=== PATIENT | female | born 1950 | race Caucasian/White ===

== ENCOUNTER 2017-08-16 16:08 | Emergency (ER) | payer MEDICARE, OTHER, SELFPAY ==
[2017-08-16 16:11] VITALS: PULSE 67; RESP 18; TEMP 38.1; O2SAT 96; BMI 24.7
--- NOTE | 2017-08-16 16:32 | ED.SOB ---
HPI - SOB/Dyspnea General Chief Complaint: Shortness of Breath/Dyspnea Stated Complaint: thinks she has pneumonia Time Seen by Provider: 08/16/17 16:31 Source: patient Mode of arrival: ambulatory Limitations: no limitations History of Present Illness 67-year-old female here for evaluation of 2-3 days of a productive cough and wheezing. She also states that yesterday and today she had fevers and chills. No sinus congestion. States she has been diagnosed in the past with pneumonia and felt similar to this. Has not tried anything for it at home. Related Data Home Medications Medication Instructions Recorded Confirmed citalopram 10 mg PO DAILY #0 07/29/16 08/16/17 omeprazole 20 mg PO DAILY #0 07/29/16 08/16/17 aspirin 1 tab DAILY #0 07/15/17 08/16/17 carvedilol [Coreg] 1 tab PO BID #0 07/15/17 08/16/17 pravastatin 20 mg PO DAILY 08/16/17 08/16/17 Previous Rx's Medication Instructions Recorded azithromycin See Label Instructions .ROUTE 08/16/17 .COMPLEX #6 tab Allergies Allergy/AdvReac Type Severity Reaction Status Date / Time doxycycline [DOXYCYCLINE] Allergy Severe TONGUE Verified 08/16/17 16:15 SWELLING amoxicillin [From Augmentin] AdvReac Verified 08/16/17 16:15 clavulanic acid AdvReac Verified 08/16/17 16:15 [From Augmentin] Review of Systems Constitutional Reports body ache(s), Reports chills, Reports fatigue, Reports fever(s), Reports lethargy, Reports malaise, Denies night sweats and Denies weakness ENT Ears, Nose, Mouth, and Throat: Denies change in voice, Denies dizziness, Denies dry mouth, Denies hoarseness, Denies nasal congestion, Denies nasal discharge, Denies neck pain, Denies sinus pressure and Denies sore throat Cardiovascular Denies chest pain, Denies irregular heart rhythm, Denies lightheadedness, Denies palpitations, Denies dyspnea, Denies dyspnea on exertion and Denies orthopnea Respiratory Reports cough, Reports excessive phlegm production, Denies pain with cough, Denies dyspnea, Denies dyspnea on exertion and Denies wheezing Gastrointestinal Gastrointestinal: Denies abdominal pain, Denies change in bowel habits, Denies diarrhea, Denies nausea and Denies vomiting Musculoskeletal Denies neck pain Integumentary/Breasts Denies pruritus, Denies erythema, Denies rash and Denies wounds Neurologic Denies dizziness and Denies weakness Endocrine Reports fatigue and Denies palpitations Hematologic/Lymphatic Denies easy bruising Allergic/Immunologic Denies wheezing [facility] Social History Smoking Status: Former smoker Exam Const General: cooperative and well developed Nutritional Appearance: well nourished Orientation: alert, awake, oriented x3 and not confused HENMT Head: normocephalic and atraumatic Ears: external ears normal and TM's normal bilaterally Nose: external nose normal and No nasal discharge Face and sinus: sinuses nontender, face symmetric, no sinus tenderness and No dry mucous membranes Mouth: oral mucosae normal and moist mucous membranes Teeth and gingiva: dentition normal Throat: tonsils normal and uvula midline Resp Effort & Inspection: normal respiratory effort, able to speak in complete sentences, no respiratory distress and no use of accessory muscles Auscultation: clear to auscultation bilaterally, no rales, rhonchi right upper and right lower and no wheezes Skin General: no rashes or lesions noted, No jaundice and No petechiae Neuro General: alert, oriented x3, gait normal and no focal motor deficits Speech: speech normal Motor: strength 5/5 throughout Sensory Exam: no sensory deficits noted Course Orders Ordered: ED Orders 08/16/17 16:31 XR chest 2V Stat Last Vital Signs Temp 98.7 F 08/16/17 17:37 Pulse 96 H 08/16/17 17:37 Resp 20 08/16/17 17:37 BP 166/81 H 08/16/17 17:37 Pulse Ox 99 08/16/17 17:37 MDM - SOB/Dyspnea MDM Narrative Medical decision making narrative: Clinically patient has pneumonia. Has been febrile at home with a productive cough and has coarse right-sided breath sounds. No definitive consolidation seen on the chest x-ray. Patient does not have URI like symptoms. We did discuss the use of antibiotics and the risks and benefits. We also discussed the use of decongestants. I suggested that she take a decongestant along with the antibiotics for the next week. She was given return precautions. She expressed understanding and agreement with plan Imaging Data Chest x-ray: Radiologist's impression: PROCEDURE: XR CHEST 2V INDICATIONS: Fever cough malaise concern for pneumonia TECHNIQUE: 2 views of the chest were acquired. COMPARISON: [facility], , CHEST 2 VIEW, 07/29/2016, 12:23. FINDINGS: Surgical changes and devices: None. Lungs and pleura: No pleural effusions or pneumothorax. Lungs are clear. Mediastinum: Mediastinal contours are normal. Heart size is normal. Bones and chest wall: No suspicious bony abnormalities. Soft tissues appear unremarkable. IMPRESSION: No acute pulmonary process. Dictated by: Maryan Hart M.D. on 08/16/2017 at 16:52 Discharge Plan Departure Patient Disposition: Home, Self-Care Clinical Impression: Pneumonia Interventions: ED Discharge Assessment Last Done: 08/16/17 17:37 Instructions: Pneumonia-Adult Activity Restrictions/Additional Instructions: Take all of your medication as instructed. Call your primary care doctor for a follow-up. Recommend that you also take a decongestant such as Claritin/Tuyet/Zyrtec like we discussed. Return to the emergency department for any new or worsening symptoms Prescriptions: New azithromycin 250 mg tablet See Label Instructions .ROUTE .COMPLEX Qty: 6 RF: 0 No Action citalopram 10 MG tablet 10 mg PO DAILY Qty: 0 RF: 0 omeprazole 20 MG capsule,delayed release(DR/EC) 20 mg PO DAILY Qty: 0 RF: 0 aspirin 81 MG tablet,chewable 1 tab DAILY Qty: 0 RF: 0 carvedilol [Coreg] 3.125 MG tablet 1 tab PO BID Qty: 0 RF: 0 pravastatin 20 mg tablet 20 mg PO DAILY RF: 0
[2017-08-16 17:37] VITALS: BP 166/81; PULSE 96; RESP 20; TEMP 37.1; O2SAT 99
== END 2017-08-16 17:37 | disposition home or self-care (01) ==
PROVIDERS: Emergency Provider Emergency Medicine; PCP Nurse Practitioner Family
DX: J18.9 Pneumonia, unspecified organism (principal)
CPT/HCPCS: 71046; 99282; 99283

== ENCOUNTER → 2018-08-29 12:57 | Outpatient (CLI) | payer MEDICARE, OTHER, SELFPAY ==
[2018-08-29 14:52] LABS: Cholesterol 195 mg/dL (140-199); HDL Cholesterol 87 mg/dL (40-60); LDL Cholesterol Calculated 92 mg/dL (<100); Triglycerides 80 mg/dL (35-150)
== END ==
PROVIDERS: PCP Nurse Practitioner Family; Visit Provider Internal Medicine
DX: I25.10 Atherosclerotic heart disease of native coronary artery without angina pectoris (principal)
CPT/HCPCS: 36415; 80061

== ENCOUNTER 2019-04-26 20:06 | Emergency (ER) | payer MEDICARE, OTHER, SELFPAY ==
[2019-04-26 20:13] VITALS: BP 200/116; PULSE 99; RESP 14; TEMP 36.3; O2SAT 96; BMI 24.7
[2019-04-26 20:24] LABS: Add Manual Diff / Slide Review NO; Basophils Absolute Auto 100 /uL (0-100); Basophils Percent Auto 0.6 % (0-2); Eosinophils Absolute Auto 200 /uL (0-450); Eosinophils Percent Auto 1.8 % (2-4); Hemoglobin 16.7 g/dL (12.0-16.0); Lymphocytes Absolute Auto 1800 /uL (1100-4500); Lymphocytes Percent Auto 16.1 % (25-40); Mean Corpuscular HGB Conc 34.1 % (30-36); Mean Corpuscular Hemoglobin 30.2 PG (26-34); Mean Corpuscular Volume 88.4 fL (80-100); Monocytes Absolute Auto 400 /uL (0-900); Monocytes Percent Auto 4.1 % (3-14); Neutrophils Absolute Auto 8500 /uL (1500-7000); Neutrophils Percent Auto 77.4 % (50-75); Platelet Count 225 X10^3/uL (150-400); Red Blood Cell Count 5.55 X10^6/uL (4.0-5.2)
[2019-04-26 20:26] LABS: INR 1.1 (0.9-1.3); Prothrombin Time 12.2 SECONDS (10.1-12.7)
[2019-04-26 20:29] LABS: PTT Partial Thromboplastin Tim 34 SECONDS (26.4-36.2)
[2019-04-26 20:30] LABS: Alanine Aminotransferase 24 IU/L (<35); Albumin 4.7 g/dL (3.5-5.0); Albumin Globulin Ratio 1.2 (1.0-2.8); Alkaline Phosphatase 96 U/L (38-126); Aspartate Aminotransferase 38 IU/L (14-36); BUN Creatinine Ratio 28.6 (6-22); Blood Urea Nitrogen 20 mg/dL (7-17); Calcium 9.7 mg/dL (8.4-10.2); Carbon Dioxide 24 mmol/L (22-32); Chloride 100 mmol/L (98-107); Estimated Glomerular Filt Rate > 60.0 mL/min (>60); Globulin 3.8 g/dL (1.7-4.1); Glucose 132 mg/dL (80-110); HEMOLYSIS 68 (0-50); Lipase 103 U/L (23-300); Sodium 135 mmol/L (137-145); Total Protein 8.5 g/dL (6.3-8.2)
[2019-04-26 20:31] LABS: Potassium 4.6 mmol/L (3.4-5.1)
[2019-04-26 21:01] VITALS: BP 158/103; PULSE 80; O2SAT 96
[2019-04-26 21:26] VITALS: BP 199/96; PULSE 83; RESP 23; O2SAT 94
[2019-04-26 21:51] LABS: Creatine Kinase 162 U/L (30-135)
[2019-04-26 22:02] VITALS: BP 198/97; PULSE 83; O2SAT 96
[2019-04-26 22:04] LABS: Troponin I < 0.012 ng/mL (0.01-0.034)
[2019-04-26 22:07] LABS: Creatine Kinase MB 4.86 ng/mL (<2.37)
--- NOTE | 2019-04-26 22:19 | PC.NURSE ---
answered call light. Pt C/O increasing ABD pain. updated pt on wait for Dr. Updated DrEvelin On pt pain.
[2019-04-26 22:50] VITALS: BP 192/100; PULSE 88; O2SAT 94
--- NOTE | 2019-04-26 23:29 | ED.ABDPAIN ---
HPI - Abdominal Pain General Chief Complaint: Abdominal Pain Stated Complaint: Abdominal pain Time Seen by Provider: 04/26/19 22:31 Source: patient and EMS Mode of arrival: Wheelchair Limitations: no limitations History of Present Illness HPI narrative: 68-year-old woman with history of coronary disease reflux, hyperlipidemia presents with acute onset of nausea vomiting and diarrhea. She woke up this morning and felt somewhat nauseated and was having some mild stomach grumbling. Began having a couple of episodes of non bloody diarrhea. Proceeded to become more nauseated and then was having both emesis as well as diarrhea simultaneously. She is having severe abdominal cramps with this. No fevers, no cough, no chills, no chest pain. Related Data Home Medications Medication Instructions Recorded Confirmed citalopram 10 mg PO DAILY #0 07/29/16 08/16/17 omeprazole 20 mg PO DAILY #0 07/29/16 08/16/17 aspirin 1 tab DAILY #0 07/15/17 08/16/17 carvedilol [Coreg] 1 tab PO BID #0 07/15/17 08/16/17 pravastatin 20 mg PO DAILY 08/16/17 08/16/17 Previous Rx's Medication Instructions Recorded azithromycin See Rx Instructions .ROUTE 08/16/17 .COMPLEX #6 tab ondansetron HCl [Zofran] 4 mg PO Q8H PRN #10 tab 04/27/19 Allergies Allergy/AdvReac Type Severity Reaction Status Date / Time doxycycline [DOXYCYCLINE] Allergy Severe TONGUE Verified 08/16/17 16:15 SWELLING amoxicillin [From Augmentin] AdvReac Verified 08/16/17 16:15 clavulanic acid AdvReac Verified 08/16/17 16:15 [From Augmentin] Review of Systems Review of Systems Narrative: All systems reviewed and are unremarkable except as noted in HPI and below Patient History Medical History (Updated 04/27/19 @ 04:39 by Marcella Sullivan MD) Acid reflux (Acute) ASCVD (arteriosclerotic cardiovascular disease) (Acute) History of [place] (myocardial infarction) (Acute) Hyperlipidemia (Acute) Hypertension (Acute) Social History Smoking Status: Former smoker Smoking Status: Former smoker alcohol intake frequency: 0-2 drinks per day Alcohol type: wine Substance Use Type: does not use Exam Narrative Exam Narrative: General: Pale appearing in moderate distress due to crampy abdominal pain Able to give a complete and coherent history. Well-nourished well-developed HEENT: Moist mucous membranes, normal sclera with reactive pupils, Neck: No JVD, supple Respiratory: Lungs are clear to auscultation, no wheezing no rales no rhonchi. Full and symmetrical air movement Cardiac: Regular rate and rhythm no murmurs no bruits Abdomen: Significant right-sided tenderness without rebound or guarding good bowel tones, no flank pain Skin: Warm and dry, no rashes Neurologic: Grossly neurologically intact with no obvious asymmetries or abnormalities Extremities: No trauma, well perfused Psych: Cooperative, appropriate insight and affect Initial Vital Signs Initial Vital Signs: Vital Signs Temperature 97.3 F L 04/26/19 20:13 Pulse Rate 99 H 04/26/19 20:13 Respiratory Rate 14 04/26/19 20:13 Blood Pressure 200/116 H 04/26/19 20:13 Pulse Oximetry 96 04/26/19 20:13 Course Orders Ordered: ED Orders 04/26/19 20:12 EKG-12 Lead Stat 04/26/19 20:19 Complete Blood Count AUTO DIFF Stat Comprehensive Metabolic Panel Stat Lipase Stat Partial Thromboplastin Time Stat Prothrombin Time INR Stat Troponin & CK Cardiac Panel Stat 04/26/19 23:30 CT abdomen pelvis w con Stat 04/27/19 01:13 Urine Culture Stat Urine Microscopic Stat Discontinued Medications Hydromorphone HCl (Dilaudid) 0.5 mg IV NOW ONE Stop: 04/26/19 23:30 Last Admin: 04/26/19 23:42 Dose: 0.5 mg Documented by: MURIEL Sodium Chloride (Normal Saline 0.9%) 1,000 mls @ 1,000 mls/hr IV BOLUS ONE Stop: 04/27/19 00:28 Last Infusion: 04/27/19 01:18 Dose: 0 mls/hr Documented by: Admin: 04/26/19 23:42 Dose: 1,000 mls/hr Documented by: MURIEL Ondansetron HCl (Zofran) 4 mg IV NOW ONE Stop: 04/26/19 23:30 Last Admin: 04/26/19 23:42 Dose: 4 mg Documented by: MURIEL Ondansetron HCl (Zofran) 4 mg IV NOW ONE Stop: 04/27/19 04:12 Last Admin: 04/27/19 04:31 Dose: 4 mg Documented by: JAHAIRA Vital Signs Vital signs: Vital Signs - 8 hr 04/26/19 21:01 04/26/19 21:26 04/26/19 22:02 Pulse Rate 80 83 83 Respiratory Rate 23 Blood Pressure [Left Arm] 158/103 H 199/96 H 198/97 H Pulse Oximetry 96 94 96 04/26/19 22:50 04/26/19 23:30 04/27/19 00:18 Pulse Rate 88 101 H 83 Respiratory Rate 23 21 Blood Pressure [Left Arm] 192/100 H 197/111 H 139/76 Pulse Oximetry 94 94 95 04/27/19 00:50 04/27/19 02:46 Pulse Rate 83 88 Respiratory Rate 16 Blood Pressure [Left Arm] 162/86 H 143/89 H Pulse Oximetry 92 93 MDM - Abdominal Pain Medical Records Attestation: I reviewed the patient's medical records. Lab Data Attestation: I reviewed the patient's lab results. Result diagrams: 04/26/19 20:19 04/26/19 20:19 Labs: Lab Results 04/26/19 04/26/19 04/26/19 Range/Units 20:19 20:19 20:19 WBC 11.0 (4.5-11.0) X10^3/uL RBC 5.55 H (4.0-5.2) X10^6/uL Hgb 16.7 H (12.0-16.0) g/dL Hct 49.0 H (36-46) % MCV 88.4 (80-100) fL MCH 30.2 (26-34) PG MCHC 34.1 (30-36) % RDW 14.0 (11.6-14.8) % Plt Count 225 (150-400) X10^3/uL Neut % (Auto) 77.4 H (50-75) % Lymph % (Auto) 16.1 L (25-40) % [place] % (Auto) 4.1 (3-14) % Eos % (Auto) 1.8 L (2-4) % Baso % (Auto) 0.6 (0-2) % Neut # (Auto) 8500 H (9835-4574) /uL Lymph # (Auto) 1800 (7144-3353) /uL Independence # (Auto) 400 (0-900) /uL Eos # (Auto) 200 (0-450) /uL Baso # (Auto) 100 (0-100) /uL PT 12.2 (10.1-12.7) SECONDS INR 1.1 (0.9-1.3) APTT 34 (26.4-36.2) SECONDS Sodium 135 L (137-145) mmol/L Potassium 4.6 (3.4-5.1) mmol/L Chloride 100 (98-107) mmol/L Carbon Dioxide 24 (22-32) mmol/L BUN 20 H (7-17) mg/dL Creatinine 0.70 (0.52-1.04) mg/dL Estimated GFR > 60.0 (>60) mL/min BUN/Creatinine Ratio 28.6 H (6-22) Glucose 132 H (80-110) mg/dL Calcium 9.7 (8.4-10.2) mg/dL Total Bilirubin 1.0 (0.2-1.3) mg/dL AST 38 H (14-36) IU/L ALT 24 (<35) IU/L Alkaline Phosphatase 96 (38-126) U/L Total Creatine Kinase (30-135) U/L CK-MB (CK-2) (<2.37) ng/mL CK-MB (CK-2) Rel Index (1.5-5.0) % Troponin I (0.01-0.034) ng/mL Total Protein 8.5 H (6.3-8.2) g/dL Albumin 4.7 (3.5-5.0) g/dL Globulin 3.8 (1.7-4.1) g/dL Albumin/Globulin Ratio 1.2 (1.0-2.8) Lipase 103 (23-300) U/L Urine RBC (0-5/HPF) Urine WBC (0-5/HPF) Ur Squamous Epith Cells (0-5/HPF) Urine Bacteria (None) Ur Culture Indicated? 04/26/19 04/27/19 Range/Units 20:19 01:13 WBC (4.5-11.0) X10^3/uL RBC (4.0-5.2) X10^6/uL Hgb (12.0-16.0) g/dL Hct (36-46) % MCV (80-100) fL MCH (26-34) PG MCHC (30-36) % RDW (11.6-14.8) % Plt Count (150-400) X10^3/uL Neut % (Auto) (50-75) % Lymph % (Auto) (25-40) % Independence % (Auto) (3-14) % Eos % (Auto) (2-4) % Baso % (Auto) (0-2) % Neut # (Auto) (6790-8760) /uL Lymph # (Auto) (2652-5054) /uL Independence # (Auto) (0-900) /uL Eos # (Auto) (0-450) /uL Baso # (Auto) (0-100) /uL PT (10.1-12.7) SECONDS INR (0.9-1.3) APTT (26.4-36.2) SECONDS Sodium (137-145) mmol/L Potassium (3.4-5.1) mmol/L Chloride (98-107) mmol/L Carbon Dioxide (22-32) mmol/L BUN (7-17) mg/dL Creatinine (0.52-1.04) mg/dL Estimated GFR (>60) mL/min BUN/Creatinine Ratio (6-22) Glucose (80-110) mg/dL Calcium (8.4-10.2) mg/dL Total Bilirubin (0.2-1.3) mg/dL AST (14-36) IU/L ALT (<35) IU/L Alkaline Phosphatase (38-126) U/L Total Creatine Kinase 162 H (30-135) U/L CK-MB (CK-2) 4.86 H (<2.37) ng/mL CK-MB (CK-2) Rel Index 3.0 (1.5-5.0) % Troponin I < 0.012 (0.01-0.034) ng/mL Total Protein (6.3-8.2) g/dL Albumin (3.5-5.0) g/dL Globulin (1.7-4.1) g/dL Albumin/Globulin Ratio (1.0-2.8) Lipase (23-300) U/L Urine RBC None seen (0-5/HPF) Urine WBC None seen (0-5/HPF) Ur Squamous Epith Cells 0-1 /hpf (0-5/HPF) Urine Bacteria None seen (None) Ur Culture Indicated? Specimen cultured Point of care testing: Urine Dip Bedside Urine Glucose Negative Bedside Urine Bilirubin - Negative Bedside Urine Ketone ++ 40 Urine Specific Sperry 1.005 Bedside Urine Occult Blood - Negative Bedside Urine pH 6.5 Bedside Urine Protein +/- 15 Bedside Urine Urobilinogen +/- 1mg Bedside Urine Nitrite - Negative Bedside Urine Leukocytes +/- [address] scan - abdomen/pelvis: My Impression: CT scan is reviewed. Findings and clinical exam along with lab work are most suggestive of an acute enteritis. Radiologist's Impression: Per Dr Deni Gibbs: Suspect an inflammatory process in the region of the cecum proximal ascending colon and terminal ileum findings may reflect inflammatory bowel disease. Mild dilatation of the ileum supports inflammatory bowel disease, bowel obstruction and or infectious enteritis Moderate sigmoid and descending colon diverticulosis without diverticulitis MDM Narrative Medical decision making narrative: 3:17 am on re-evaluation she is feeling significantly better nausea has resolved, pain is significantly improved. CT scan suggests some inflammation in the cecum terminal ileum ascending colon which given her history of presentation is most consistent with a viral enteritis. She is able to tolerate oral fluids at this time. I believe she is safe for home discharge with conservative management at home. I will give her prescription for Zofran to help manage nausea should return. Am not seeing any evidence for surgical intervention, acute bacterial infection or cardiac etiology to explain her acute nausea vomiting and diarrhea Discharge Plan Departure Patient Disposition: Home Clinical Impression: Gastroenteritis and colitis, viral Instructions: DI for Viral Gastroenteritis -- Adult Activity Restrictions/Additional Instructions: Thank you for coming in today I'm glad ear feeling better after fluid a small dose of pain medication and nausea medicine. Your labs are reassuring today. Your CT scan suggests some inflammation on the right side of your colon which is consistent with a viral gastroenteritis given your history, the onset of symptoms and your exam. You are able to drink some fluids and the nausea has been controlled at this point. Your abdominal pain is significantly improved. There is no indication that you need surgery or have a significant bacterial infection. I do believe that it is safe for you to be discharged home. You have been given a dose of IV nausea medicine just prior to being discharged. I have sent a prescription prescription for Zofran, the same anti nausea medication, to use should you have continued nausea over the next few days, electronically to [facility]. If you are developing a significant fever, began vomiting blood or noting blood in your diarrhea or have increasing pain it would be appropriate to return to the emergency department for further evaluation. I hope you feel better soon Prescriptions: New ondansetron HCl [Zofran] 4 mg tablet 4 mg PO Q8H PRN (Reason: nausea and vomiting) Qty: 10 RF: 0 No Action citalopram 10 MG tablet 10 mg PO DAILY Qty: 0 RF: 0 omeprazole 20 MG capsule,delayed release(DR/EC) 20 mg PO DAILY Qty: 0 RF: 0 aspirin 81 MG tablet,chewable 1 tab DAILY Qty: 0 RF: 0 carvedilol [Coreg] 3.125 MG tablet 1 tab PO BID Qty: 0 RF: 0 pravastatin 20 mg tablet 20 mg PO DAILY RF: 0 azithromycin 250 mg tablet See Rx Instructions .ROUTE .COMPLEX Qty: 6 RF: 0 Referrals: Maryjo Anders ARNP [Primary Care Provider] -
[2019-04-26 23:30] VITALS: BP 197/111; PULSE 101; RESP 23; O2SAT 94
--- NOTE | 2019-04-26 23:30 | DI.CT.S_ITS ---
PROCEDURE: CT ABDOMEN PELVIS W CON INDICATIONS: abdominal pain TECHNIQUE: After the administration of intravenous contrast, 5 mm thick sections acquired from the diaphragm to the symphysis. 5 mm coronal and sagittal reformats were acquired. For radiation dose reduction, the following was used: automated exposure control, adjustment of mA and/or kV according to patient size. COMPARISON: None. FINDINGS: Image quality: Excellent. ABDOMEN: Lung bases: Lung bases are clear. Heart size is normal. Solid organs: Liver is normal in size and enhancement. Mild diffuse fatty infiltration of the liver. Gallbladder is within normal limits. Biliary system is non dilated. Pancreas enhances normally. Spleen is normal in size and enhancement. No adrenal nodules. Kidneys demonstrate normal size and enhancement, without hydronephrosis. Peritoneum and bowel: Mildly dilated, fluid-filled loops of small bowel noted in the right lower quadrant. Loops of small bowel are dilated up to 3.2 cm. Mild inflammatory changes noted adjacent to the terminal ileum, cecum and proximal right colon. Scattered diverticuli noted in the colon without evidence of diverticulitis. No free air. Small amount of free fluid noted adjacent to the right lobe of the liver. Trace scattered free fluid noted adjacent to dilated loops of small bowel in the right lower quadrant. The appendix is absent. Nodes and vessels: No retroperitoneal or mesenteric adenopathy by size criteria. Aorta and inferior vena cava are normal in size. Scattered atherosclerotic calcifications involving the abdominal and pelvic vasculature. Miscellaneous: No ventral hernias. PELVIS: Genitourinary: Bladder wall thickness is normal. Miscellaneous: No inguinal hernias or adenopathy. Bones: No suspicious bony lesions. No vertebral body compression fractures. Spine degenerative disc disease and facet arthropathy. IMPRESSION: 1. Mildly dilated, fluid-filled loops of small bowel in the right lower quadrant concerning for early or partial small bowel obstruction. 2. Mild inflammatory changes adjacent to the terminal ileum and cecum compatible with nonspecific enterocolitis. Differential diagnosis includes inflammatory bowel disease. 3. Colonic diverticulosis no evidence of diverticulitis. Dictated by: Kristan Ramon MD, PhD on 04/27/2019 at 8:43 Approved by: Kristan Ramon MD, PhD on 04/27/2019 at 8:49
[2019-04-26] MEDS: HYDROMORPHONE 0.5 MG INJ IV (23:42)
[2019-04-26] MEDS: ONDANSETRON 4 MG/2 ML INJ IV (23:42)
[2019-04-26] MEDS: SODIUM CHLORIDE 0.9% 1,000 ML 1000 ML IV (23:42)
[2019-04-27 00:18] VITALS: BP 139/76; PULSE 83; RESP 21; O2SAT 95
[2019-04-27 00:50] VITALS: BP 162/86; PULSE 83; O2SAT 92
[2019-04-27 01:22] LABS: Bacteria Urine None Seen; RBC Urine None Seen (0-5/HPF); WBC Urine None Seen (0-5/HPF)
[2019-04-27 01:30] LABS: Squamous Epithelial Cell Urine 0-1 /HPF (0-5/HPF)
[2019-04-27 01:31] LABS: Culture Indicated Urine Specimen Cultured
[2019-04-27 02:46] VITALS: BP 143/89; PULSE 88; RESP 16; O2SAT 93
[2019-04-27] MEDS: ONDANSETRON 4 MG/2 ML INJ IV (04:31)
[2019-04-27 05:03] VITALS: BP 118/77; PULSE 79; RESP 15; O2SAT 95
== END 2019-04-27 05:04 | disposition home or self-care (01) ==
PROVIDERS: Emergency Provider Emergency Medicine; PCP Nurse Practitioner Family
DX: K52.9 Noninfective gastroenteritis and colitis, unspecified (principal); R10.9 Unspecified abdominal pain
CPT/HCPCS: 74177; 80053; 81003; 81015; 82550; 82553; 83690; 84484; 85025; 85610; 85730; 87077; 87086; 87147; 93005; 93010; 96361; 96374; 96375; 96376; 99284; 99285; J1170; J2405; Q9967

== ENCOUNTER → 2020-04-29 14:55 | Outpatient (CLI) | payer MEDICARE, OTHER, SELFPAY ==
[2020-04-29] MEDS: COVID-19 VACC #1, MRNA(MOD) 100 MCG/0.5 ML VIAL IM (15:01)
== END ==
PROVIDERS: PCP Nurse Practitioner Family; Visit Provider Internal Medicine
DX: Z23 Encounter for immunization (principal)
CPT/HCPCS: 0011A; 91301

== ENCOUNTER → 2020-05-27 15:16 | Outpatient (CLI) | payer MEDICARE, OTHER, SELFPAY ==
[2020-05-27] MEDS: COVID-19 VACC #2, MRNA(MOD) 100 MCG/0.5 ML VIAL IM (15:22)
== END ==
PROVIDERS: PCP Nurse Practitioner Family; Visit Provider Internal Medicine
DX: Z23 Encounter for immunization (principal)
CPT/HCPCS: 0012A; 91301

== ENCOUNTER → 2021-01-16 13:59 | Outpatient (CLI) | payer MEDICARE, OTHER, SELFPAY ==
[2021-01-16 14:54] LABS: COVID19 -Nasal RAPID POSITIVE (Negative)
== END ==
PROVIDERS: PCP Nurse Practitioner Family; Referring Provider Nurse Practitioner; Visit Provider Nurse Practitioner
DX: U07.1 COVID-19 (principal); Z20.822 Contact with and (suspected) exposure to COVID-19
CPT/HCPCS: 87635

== ENCOUNTER → 2021-05-29 13:09 | Outpatient (CLI) | payer MEDICARE, OTHER, SELFPAY ==
[2021-05-29 13:54] LABS: Add Manual Diff / Slide Review NO; Basophils Absolute Auto 100 /uL (0-100); Eosinophils Absolute Auto 500 /uL (0-450); Eosinophils Percent Auto 7.3 % (2-4); Hematocrit 42.7 % (36-46); Hemoglobin 14.1 g/dL (12.0-16.0); Lymphocytes Absolute Auto 1600 /uL (1100-4500); Lymphocytes Percent Auto 25.9 % (25-40); Mean Corpuscular HGB Conc 33.1 % (30-36); Mean Corpuscular Hemoglobin 30.1 PG (26-34); Mean Corpuscular Volume 90.9 fL (80-100); Monocytes Absolute Auto 400 /uL (0-900); Monocytes Percent Auto 6.1 % (3-14); Neutrophils Absolute Auto 3700 /uL (1500-7000); Neutrophils Percent Auto 59.7 % (50-75); Platelet Count 218 X10^3/uL (150-400); Red Blood Cell Count 4.69 X10^6/uL (4.0-5.2); Red Cell Distribution Width 14.1 % (11.6-14.8); White Blood Cell Count 6.3 X10^3/uL (4.5-11.0)
[2021-05-29 14:13] LABS: Alanine Aminotransferase 17 IU/L (<35); Albumin 4.3 g/dL (3.5-5.0); Albumin Globulin Ratio 1.5 (1.0-2.8); Alkaline Phosphatase 67 U/L (38-126); Aspartate Aminotransferase 28 IU/L (14-36); BUN Creatinine Ratio 18.2 (6-22); Bilirubin Total 0.6 mg/dL (0.2-1.3); Blood Urea Nitrogen 14 mg/dL (7-17); Calcium 9.2 mg/dL (8.4-10.2); Carbon Dioxide 33 mmol/L (22-32); Chloride 104 mmol/L (98-107); Cholesterol 190 mg/dL (140-199); Estimated Glomerular Filt Rate > 60.0 mL/min (>60); Globulin 2.9 g/dL (1.7-4.1); Glucose 90 mg/dL (80-110); HDL Cholesterol 70 mg/dL (40-60); HEMOLYSIS < 15 (0-50); LDL Cholesterol Calculated 107 mg/dL (<100); Potassium 4.7 mmol/L (3.4-5.1); Sodium 137 mmol/L (137-145); Total Protein 7.2 g/dL (6.3-8.2); Triglycerides 67 mg/dL (35-150)
[2021-05-29 14:41] LABS: TSH w/ Reflex to FT4 0.74 uIU/mL (0.47-4.68)
== END ==
PROVIDERS: PCP Nurse Practitioner Family; Referring Provider Nurse Practitioner Family; Visit Provider Nurse Practitioner Family
DX: Z13.29 Encounter for screening for other suspected endocrine disorder (principal); Z13.6 Encounter for screening for cardiovascular disorders; Z13.1 Encounter for screening for diabetes mellitus; Z13.220 Encounter for screening for lipoid disorders
CPT/HCPCS: 36415; 80053; 80061; 84443; 85025

== ENCOUNTER → 2022-02-15 12:45 | Outpatient (CLI) | payer MEDICARE, OTHER, SELFPAY ==
[2022-02-15 14:06] LABS: Add Manual Diff / Slide Review NO; Basophils Absolute Auto 0 /uL (0-100); Basophils Percent Auto 0.5 % (0-2); Eosinophils Absolute Auto 500 /uL (0-450); Eosinophils Percent Auto 7.1 % (2-4); Hematocrit 43.3 % (36-46); Hemoglobin 14.4 g/dL (12.0-16.0); Lymphocytes Absolute Auto 1200 /uL (1100-4500); Lymphocytes Percent Auto 16.1 % (25-40); Mean Corpuscular HGB Conc 33.3 % (30-36); Mean Corpuscular Hemoglobin 30.7 PG (26-34); Mean Corpuscular Volume 92.2 fL (80-100); Monocytes Absolute Auto 400 /uL (0-900); Monocytes Percent Auto 5.9 % (3-14); Neutrophils Absolute Auto 5100 /uL (1500-7000); Neutrophils Percent Auto 70.4 % (50-75); Platelet Count 225 X10^3/uL (150-400); Red Blood Cell Count 4.69 X10^6/uL (4.0-5.2); Red Cell Distribution Width 14.3 % (11.6-14.8); White Blood Cell Count 7.2 X10^3/uL (4.5-11.0)
[2022-02-15 14:13] LABS: Alanine Aminotransferase 21 IU/L (<35); Albumin 4.3 g/dL (3.5-5.0); Albumin Globulin Ratio 1.3 (1.0-2.8); Alkaline Phosphatase 84 U/L (38-126); Aspartate Aminotransferase 28 IU/L (14-36); BUN Creatinine Ratio 20.3 (6-22); Bilirubin Total 0.6 mg/dL (0.2-1.3); Blood Urea Nitrogen 16 mg/dL (7-17); Calcium 8.8 mg/dL (8.4-10.2); Carbon Dioxide 29 mmol/L (22-32); Chloride 100 mmol/L (98-107); Cholesterol 196 mg/dL (140-199); Estimated Glomerular Filt Rate > 60 mL/min (>60); Globulin 3.2 g/dL (1.7-4.1); Glucose 100 mg/dL (80-110); HDL Cholesterol 84 mg/dL (40-60); HEMOLYSIS < 15 (0-50); LDL Cholesterol Calculated 100 mg/dL (<100); Potassium 4.2 mmol/L (3.4-5.1); Sodium 139 mmol/L (137-145); Total Protein 7.5 g/dL (6.3-8.2); Triglycerides 62 mg/dL (35-150)
[2022-02-15 15:03] LABS: TSH w/ Reflex to FT4 0.84 uIU/mL (0.47-4.68)
== END ==
PROVIDERS: PCP Nurse Practitioner Family; Referring Provider Nurse Practitioner Family; Visit Provider Nurse Practitioner Family
DX: Z13.6 Encounter for screening for cardiovascular disorders (principal); Z13.220 Encounter for screening for lipoid disorders; Z13.1 Encounter for screening for diabetes mellitus; Z13.29 Encounter for screening for other suspected endocrine disorder
CPT/HCPCS: 36415; 80053; 80061; 84443; 85025

== ENCOUNTER → 2023-02-11 12:59 | Outpatient (CLI) | payer MEDICARE, OTHER, SELFPAY ==
[2023-02-11 14:03] LABS: Add Manual Diff / Slide Review NO; Basophils Absolute Auto 0 /uL (0-100); Basophils Percent Auto 0.8 % (0-2); Eosinophils Absolute Auto 600 /uL (0-450); Eosinophils Percent Auto 9.3 % (2-4); Hematocrit 41.5 % (36-46); Hemoglobin 14.1 g/dL (12.0-16.0); Lymphocytes Absolute Auto 1500 /uL (1100-4500); Mean Corpuscular Hemoglobin 30.5 PG (26-34); Mean Corpuscular Volume 89.6 fL (80-100); Monocytes Absolute Auto 400 /uL (0-900); Monocytes Percent Auto 6.8 % (3-14); Neutrophils Absolute Auto 3500 /uL (1500-7000); Neutrophils Percent Auto 58.1 % (50-75); Platelet Count 223 X10^3/uL (150-400); Red Blood Cell Count 4.63 X10^6/uL (4.0-5.2); Red Cell Distribution Width 14.2 % (11.6-14.8)
[2023-02-11 14:19] LABS: Alanine Aminotransferase 19 IU/L (<35); Albumin Globulin Ratio 1.3 (1.0-2.8); Alkaline Phosphatase 77 U/L (38-126); Aspartate Aminotransferase 33 IU/L (14-36); BUN Creatinine Ratio 16.7 (6-22); Bilirubin Total 0.7 mg/dL (0.2-1.3); Blood Urea Nitrogen 13 mg/dL (7-17); Calcium 9.2 mg/dL (8.4-10.2); Carbon Dioxide 27 mmol/L (22-32); Chloride 103 mmol/L (98-107); Cholesterol 194 mg/dL (140-199); Estimated Glomerular Filt Rate > 60 mL/min (>60); Globulin 3.1 g/dL (1.7-4.1); Glucose 98 mg/dL (80-110); HDL Cholesterol 75 mg/dL (40-60); HEMOLYSIS 16 (0-50); LDL Cholesterol Calculated 100 mg/dL (<100); Potassium 4.5 mmol/L (3.4-5.1); Sodium 136 mmol/L (137-145); Total Protein 7.1 g/dL (6.3-8.2); Triglycerides 93 mg/dL (35-150)
[2023-02-11 14:45] LABS: TSH w/ Reflex to FT4 0.78 uIU/mL (0.47-4.68)
== END ==
PROVIDERS: PCP Nurse Practitioner Family; Referring Provider Nurse Practitioner Family; Visit Provider Nurse Practitioner Family
DX: Z13.1 Encounter for screening for diabetes mellitus (principal); Z13.220 Encounter for screening for lipoid disorders; Z13.29 Encounter for screening for other suspected endocrine disorder; E78.5 Hyperlipidemia, unspecified; I10 Essential (primary) hypertension
CPT/HCPCS: 36415; 80053; 80061; 84443; 85025

== ENCOUNTER → 2023-02-18 14:37 | Outpatient (CLI) | payer MEDICARE, OTHER, SELFPAY ==
--- NOTE | 2023-02-18 | DI.RAD.S_ITS ---
PROCEDURE: XR CHEST 2V INDICATIONS: chronic cough, COPD, former smoker TECHNIQUE: 2 views of the chest were acquired. COMPARISON: [facility], [place], XR CHEST 2V, 08/16/2017, 16:23. [facility], [place], CHEST 2 VIEW, 07/29/2016, 12:23. FINDINGS: Surgical changes and devices: None. Lungs and pleura: Lungs are clear. No pleural effusions or pneumothorax. Mediastinum: Mediastinal contours are normal. Heart size is normal. Bones and chest wall: No suspicious bony abnormalities. Soft tissues appear unremarkable. IMPRESSION: No acute cardiopulmonary abnormality is seen. Dictated by: Doroteo Cornell M.D. on 02/18/2023 at 16:14 Approved by: Doroteo Cornell M.D. on 02/18/2023 at 16:14
== END ==
PROVIDERS: PCP Nurse Practitioner Family; Referring Provider Nurse Practitioner Family; Visit Provider Nurse Practitioner Family
DX: J44.9 Chronic obstructive pulmonary disease, unspecified (principal); R05.3 Chronic cough; Z87.891 Personal history of nicotine dependence
CPT/HCPCS: 71046

== ENCOUNTER → 2024-01-17 13:36 | Outpatient (CLI) | payer MEDICARE, OTHER, SELFPAY ==
[2024-01-17 14:31] LABS: Add Manual Diff / Slide Review NO; Basophils Absolute Auto 100 /uL (0-100); Basophils Percent Auto 0.8 % (0-2); Eosinophils Absolute Auto 600 /uL (0-450); Eosinophils Percent Auto 7.9 % (2-4); Hematocrit 45.6 % (36-46); Hemoglobin 15.3 g/dL (12.0-16.0); Lymphocytes Absolute Auto 1500 /uL (1100-4500); Lymphocytes Percent Auto 19.6 % (25-40); Mean Corpuscular HGB Conc 33.5 % (30-36); Mean Corpuscular Hemoglobin 30.6 PG (26-34); Mean Corpuscular Volume 91.2 fL (80-100); Monocytes Absolute Auto 400 /uL (0-900); Monocytes Percent Auto 5.3 % (3-14); Neutrophils Absolute Auto 5000 /uL (1500-7000); Neutrophils Percent Auto 66.4 % (50-75); Platelet Count 221 X10^3/uL (150-400); White Blood Cell Count 7.5 X10^3/uL (4.5-11.0)
[2024-01-17 14:38] LABS: Hemoglobin A1C% w Est Avg Glu 5.3 % (4.0-6.0)
[2024-01-17 14:59] LABS: Alanine Aminotransferase 21 IU/L (<35); Albumin 4.2 g/dL (3.5-5.0); Albumin Globulin Ratio 1.7 (1.0-2.8); Alkaline Phosphatase 89 U/L (38-126); Aspartate Aminotransferase 31 IU/L (14-36); BUN Creatinine Ratio 16.7 (6-22); Bilirubin Total 0.8 mg/dL (0.2-1.3); Blood Urea Nitrogen 13 mg/dL (7-17); Calcium 9.3 mg/dL (8.4-10.2); Carbon Dioxide 29 mmol/L (22-32); Chloride 100 mmol/L (98-107); Cholesterol 178 mg/dL (140-199); Estimated Glomerular Filt Rate > 60 mL/min (>60); Globulin 2.5 g/dL (1.7-4.1); Glucose 99 mg/dL (80-110); HDL Cholesterol 92 mg/dL (40-60); HEMOLYSIS < 15 (0-50); LDL Cholesterol Calculated 70 mg/dL (<100); Sodium 135 mmol/L (137-145); Total Protein 6.7 g/dL (6.3-8.2); Triglycerides 79 mg/dL (35-150)
[2024-01-17 15:14] LABS: Free T3, Triiodothyronine Free 3.79 pg/mL (2.77-5.27); Free T4, Direct Thyroxine 1.29 ng/dL (0.78-2.19)
[2024-01-17 15:28] LABS: Thyroid Stimulating Hormone 0.875 uIU/mL (0.47-4.68)
== END ==
LOC: LAB 13:40
PROVIDERS: PCP Nurse Practitioner Family; Referring Provider Nurse Practitioner Family; Visit Provider Nurse Practitioner Family
DX: Z00.00 Encounter for general adult medical examination without abnormal findings (principal); Z13.29 Encounter for screening for other suspected endocrine disorder; Z13.220 Encounter for screening for lipoid disorders
CPT/HCPCS: 36415; 80053; 80061; 83036; 84439; 84443; 84481; 85025

== ENCOUNTER → 2024-03-30 14:41 | Outpatient (CLI) | payer MEDICARE, OTHER, SELFPAY ==
--- NOTE | 2024-03-30 14:43 | DI.MG.S_ITS ---
BILATERAL DIGITAL SCREENING MAMMOGRAM 3D/2D WITH CAD: 03/30/2024 CLINICAL: Routine screening. Baseline exam. No prior exams were available for comparison. There are scattered areas of fibroglandular density (category b / 25%-50% glandular tissue). Current study was also evaluated with a Computer Aided Detection (CAD) system. No significant masses, calcifications, or other findings are seen in either breast. IMPRESSION: NEGATIVE There is no mammographic evidence of malignancy. A 1 year screening mammogram is recommended. Based on the Tyrer Cuzick model (a risk assessment model) the patient's lifetime risk is 3.1% and her 10 year risk is 2.3%. According to the ACR, ACS, and NCCN guidelines, an annual breast MRI exam along with mammogram is recommended if the patient's lifetime risk is 20% or greater. This exam was interpreted at Station ID: [id number]. NOTE: For mammograms, a report in lay terms will be sent to the patient. Approximately 15% of breast malignancies will not be visualized mammographically. In the management of a palpable breast mass, a negative mammogram must not discourage biopsy of a clinically suspicious lesion. Electronically Signed By: Juanita Bender M.D., Ph.D. [email or web address]:03/30/2024 16:36:32 letter sent: Normal Exam ACR BI-RADS Category 1: Negative
== END ==
PROVIDERS: PCP Nurse Practitioner Family; Referring Provider Nurse Practitioner Family; Visit Provider Nurse Practitioner Family
DX: Z12.31 Encounter for screening mammogram for malignant neoplasm of breast (principal)
CPT/HCPCS: 77063; 77067

== ENCOUNTER 2024-10-01 17:55 | Emergency (ER) | payer MEDICARE, OTHER, SELFPAY ==
[2024-10-01 17:59] VITALS: BP 227/125; PULSE 105; RESP 16; TEMP 36.5; O2SAT 97; BMI 23.8
--- NOTE | 2024-10-01 18:34 | ED.WOUNDLAC ---
HPI - Wound/Laceration General Chief Complaint: Wound/Laceration Stated Complaint: Lt hand wound while closing car door Time Seen by Provider: 10/01/24 18:03 Source: patient Mode of arrival: Ambulatory History of Present Illness HPI narrative: Ms. Jay is a pleasant 74-year-old female with a past medical history of hypertension, hyperlipidemia, CAD who presents to the emergency department for a left hand laceration that occurred prior to arrival. Patient states that she attempted to close a car door however the open car door was closed the porch of her house and when she slipped her hand between the door and the porch the back of her hand sustained a skin tear. She is quite squeamish of blood in wounds and was feeling quite unwell looking at it and was experiencing pain on the back of her hand. She denies crushing of her hand or any other injuries. Her blood pressure was noted to be quite elevated in the emergency department, she denies any chest pain, shortness of breath, visual disturbance headache lightheadedness or dizziness. She typically takes carvedilol 3.125 mg b.i.d., she is not yet due for her nightly dose. States that she is feeling stressed about the potential of stitches. No blood thinner use. Unsure of her last Tdap. Related Data Home Medications ?Medication ?Instructions ?Recorded ?Confirmed citalopram 10 mg tablet 10 mg PO DAILY ##0 07/29/16 01/16/21 omeprazole 20 mg capsule,delayed 20 mg PO DAILY ##0 07/29/16 01/16/21 release aspirin 81 mg chewable tablet 1 tab DAILY ##0 07/15/17 01/16/21 carvedilol 3.125 mg tablet (Coreg) 1 tab PO BID ##0 07/15/17 01/16/21 pravastatin 20 mg tablet 20 mg PO DAILY 08/16/17 01/16/21 Previous Rx's ?Medication ?Instructions ?Recorded azithromycin 250 mg tablet See Rx Instructions PO .COMPLEX #6 08/16/17 tabs ondansetron HCl 4 mg tablet 4 mg PO Q8H PRN nausea and 04/27/19 (Zofran) vomiting #10 tabs benzonatate 100 mg capsule 100 mg PO BID-TID PRN cough #20 01/16/21 (Tessalon Perles) caps Allergies Allergy/AdvReac Type Severity Reaction Status Date / Time doxycycline (DOXYCYCLINE) Allergy Severe TONGUE Verified 08/16/17 16:15 SWELLING Review of Systems Review of Systems ROS Unobtainable: All systems reviewed & are unremarkable except as noted in HPI and below Patient History Medical History Hypertension Hyperlipidemia Acid reflux History of CA (myocardial infarction) ASCVD (arteriosclerotic cardiovascular disease) alcohol intake frequency: 0-2 drinks per day Alcohol type: wine Exam Narrative Exam Narrative: GENERAL: 74 year old patient appears stated age. Well-developed patient, in no acute distress. HEAD: Atraumatic. Normocephalic. NECK: Cervical ROM intact. RESPIRATORY: ?Nonlabored respirations. ?Speaking in clear, full sentences. EXTREMITIES: Strong radial pulses bilaterally and brisk capillary refill. Patient has a 5 cm linear curved skin tear on the dorsal aspect of her left hand, bleeding is controlled with direct pressure. There is ecchymosis at the proximal base of the 3rd digit. Patient has no focal bony tenderness and has full range of motion of the hand. NEURO: AOx3. ?Clear speech. ?Moves all 4 extremities appropriately. Sensation intact to light touch in the distribution of the median, ulnar, radial nerves bilaterally. SKIN: Skin is warm, dry. Left dorsal hand laceration described above. Initial Vital Signs Initial Vital Signs: Vital Signs Temperature 97.7 F 10/01/24 17:59 Pulse Rate 105 H 10/01/24 17:59 Respiratory Rate 16 10/01/24 17:59 Blood Pressure 227/125 H 10/01/24 17:59 Pulse Oximetry 97 10/01/24 17:59 Oxygen Delivery Method Room Air 10/01/24 17:59 Procedures Laceration Repair Laceration 1: Time of procedure: 19:04 Site: hand (dorsum) Side (If applicable): left Size (cm): 5 Description: linear Depth: simple, single layer Pre-repair: wound explored, irrigated extensively and deep structures intact Skin layer closed with: steri-strips (8) Course Orders Ordered: ED Orders 10/01/24 19:30 CBC Auto Diff [Complete Blood Count AUTO DIFF] Stat CMP [Comprehensive Metabolic Panel] Stat Discontinued Medications Hydrocodone Bitart/Acetaminophen (Hydrocodone/Acet 5/325 Tablet) 1 tab PO NOW ONE Stop: 10/01/24 18:35 Last Admin: 10/01/24 18:41 Dose: 1 tab Documented By: PADILLA Carvedilol (Carvedilol 3.125 Mg Tablet) 3.125 mg PO NOW ONE Stop: 10/01/24 19:13 Last Admin: 10/01/24 19:27 Dose: 3.125 mg Documented By: Diphtheria/Tetanus/Acell Pertussis (Tet,Diph,Pertuss(Acell),Vac/Pf 0.5 Ml Syringe) 0.5 ml IM .ONCE ONE Stop: 10/01/24 18:35 Last Admin: 10/01/24 18:41 Dose: 0.5 ml Documented By: PADILLA Vital Signs Vital signs: Vital Signs - 8 hr 10/01/24 17:59 10/01/24 19:12 10/01/24 19:27 Temperature 97.7 F Pulse Rate 105 H 86 87 Respiratory Rate 16 14 Blood Pressure 227/125 H 222/122 H 185/78 H Pulse Oximetry 97 97 Oxygen Delivery Method Room Air Room Air MDM - Wound/Laceration Medical Records Attestation: I reviewed the patient's medical records. Lab Data 10/01/24 19:30 10/01/24 19:30 Labs: Lab Results 10/01/24 Range/Units 19:30 WBC 8.3 (4.5-11.0) X10^3/uL RBC 5.05 (4.0-5.2) X10^6/uL Hgb 15.1 (12.0-16.0) g/dL Hct 44.8 (36-46) % MCV 88.6 (80-100) fL MCH 29.9 (26-34) PG MCHC 33.7 (30-36) % RDW 13.8 (11.6-14.8) % Plt Count 173 (150-400) X10^3/uL Neut % (Auto) 66.7 (50-75) % Lymph % (Auto) 19.5 L (25-40) % [place] % (Auto) 6.9 (3-14) % Eos % (Auto) 6.2 H (2-4) % Baso % (Auto) 0.7 (0-2) % Neut # (Auto) 5500 (9086-8313) /uL Lymph # (Auto) 1600 (0812-7421) /uL [place] # (Auto) 600 (0-900) /uL Eos # (Auto) 500 H (0-450) /uL Baso # (Auto) 100 (0-100) /uL Sodium 135 L (137-145) mmol/L Potassium 4.1 (3.4-5.1) mmol/L Chloride 101 (98-107) mmol/L Carbon Dioxide 26 (22-32) mmol/L BUN 14 (7-17) mg/dL Creatinine 0.69 (0.52-1.04) mg/dL Estimated GFR > 60 (>60) mL/min BUN/Creatinine Ratio 20.3 (6-22) Glucose 99 (70-99) mg/dL Calcium 9.3 (8.4-10.2) mg/dL Total Bilirubin 0.9 (0.2-1.3) mg/dL AST 33 (14-36) IU/L ALT 18 (<35) IU/L Alkaline Phosphatase 84 (38-126) U/L Total Protein 7.6 (6.3-8.2) g/dL Albumin 4.5 (3.5-5.0) g/dL Globulin 3.1 (1.7-4.1) g/dL Albumin/Globulin Ratio 1.5 (1.0-2.8) MDM Narrative Medical decision making narrative: 74-year-old female with a past medical history of hypertension, hyperlipidemia, CAD who presents to the emergency department for a left hand laceration that occurred prior to arrival. Differential diagnosis includes but is not limited to laceration, skin tear, etc. On exam patient is in no acute distress, nontoxic appearing however her blood pressure and heart rate are quite elevated in triage. Patient reports feeling very squeamish over her wound/blood and feeling stressed out about the potential stitches. She did take her carvedilol 3.125 mg this morning, she is not yet due for her nighttime dose. She denies chest pain, shortness of breath, headache, lightheadedness, dizziness visual disturbance. Plan to repair the patient's laceration, treat pain with [place], update Tdap then we will recheck blood pressure. Laceration cleansed, irrigated, repaired using Steri-Strips and a nonadherent dressing. Her pain significantly improved. Blood pressure remained elevated, discussed with nighttime physician Dr. Teague who advises CBC, CMP, home dose carvedilol 3.125mg. Pt is agreeable to this plan, feels well at this time. Labs reveal WBC count normal 8.3 hemoglobin normal 15.1 hematocrit 44.8. Appropriate platelet count. Normal renal function with a BUN of 14, creatinine of 0.69, GFR greater than 60. Normal LFTs. BP downtrending 185/78. Patient continues to feel well, recommended daily blood pressure checks, proper wound care, follow up with the PCP and ED return precautions. Patient and her spouse verbalized understanding all information agreeable to the plan. She is stable for discharge home. Discharge Plan Departure Patient Disposition: Home Clinical Impression: Elevated blood pressure reading Laceration of hand, left Qualifiers: Encounter type: initial encounter Foreign body presence: without foreign body Qualified Code(s): S61.412A - Laceration without foreign body of left hand, initial encounter Instructions: DI for Laceration Repair-Skin Closure Strips Activity Restrictions/Additional Instructions: Dear Ms. Jay, Thank you for coming to the emergency department. Today you were evaluated for a laceration to your left hand. We have used skin tape to close your laceration. These strips should not be removed or pulled off, and they instead should be allowed to fall off on their own over the next 1-2 weeks. Please keep the dressing on your wound clean, dry, and intact for the next 24 hours. After this time, you may remove the dressing and gently clean the wound with soap and water, then pat dry. Keep the wound clean and covered with a dressing at all times. Avoid soaking the wound in any water such as a bath, pool, or the ocean. If you develop any signs of wound infection such as increased redness, pus drainage, streaking redness, or fevers, please return to the ER immediately for evaluation. We updated your tetanus shot today. Your blood pressure was elevated today. We gave you your home dose of blood pressure medication. Please follow up with your primary care doctor for blood pressure recheck. It can be helpful to take your blood pressure once a day every day, right down this value to bring with you to your primary care doctor's appointment. Please follow up with your primary care doctor within the next 2-3 days for ER follow-up. (If you do not have a PCP you can call [phone]. ?to schedule an appointment with an [facility] Primary Care Provider) IF YOU DEVELOP ANY NEW OR WORSENING SYMPTOMS, RETURN TO THE ER! Please read the attached instructions, they highlight more specific treatments and interventions for you at home. Thank you for letting me participate in your care, Lulu Savage PA-C Prescriptions: No Action benzonatate [Tessalon Perles] 100 mg capsule 100 mg PO BID-TID PRN (Reason: cough) Qty: 20 0RF citalopram 10 MG tablet 10 mg PO DAILY Qty: 0 omeprazole 20 MG capsule,delayed release(DR/EC) 20 mg PO DAILY Qty: 0 aspirin 81 MG tablet,chewable 1 tab DAILY Qty: 0 carvedilol [Coreg] 3.125 MG tablet 1 tab PO BID Qty: 0 ondansetron HCl [Zofran] 4 mg tablet 4 mg PO Q8H PRN (Reason: nausea and vomiting) Qty: 10 0RF pravastatin 20 mg tablet 20 mg PO DAILY azithromycin 250 mg tablet See Rx Instructions .ROUTE .COMPLEX Qty: 6 0RF Rx Instructions: take 500 mg today (day 1), then 250 mg for 4 days (days 2-5) Referrals: Maryjo Anders ARNP [Primary Care Provider, Medical] Stand Alone Forms: Patient Portal/API
[2024-10-01] MEDS: TET,DIPH,PERTUSS(ACELL),VAC/PF 0.5 ML SYRINGE IM (18:41)
[2024-10-01] MEDS: HYDROCODONE/ACET 5/325 TABLET 1 TAB PO (18:41)
[2024-10-01 19:12] VITALS: BP 222/122; PULSE 86; RESP 14; O2SAT 97
[2024-10-01 19:27] VITALS: BP 185/78; PULSE 87
[2024-10-01] MEDS: carvediloL 3.125 MG TABLET PO (19:27)
[2024-10-01 19:43] LABS: Add Manual Diff / Slide Review NO; Basophils Absolute Auto 100 /uL (0-100); Basophils Percent Auto 0.7 % (0-2); Eosinophils Absolute Auto 500 /uL (0-450); Eosinophils Percent Auto 6.2 % (2-4); Hematocrit 44.8 % (36-46); Hemoglobin 15.1 g/dL (12.0-16.0); Lymphocytes Absolute Auto 1600 /uL (1100-4500); Lymphocytes Percent Auto 19.5 % (25-40); Mean Corpuscular HGB Conc 33.7 % (30-36); Mean Corpuscular Hemoglobin 29.9 PG (26-34); Mean Corpuscular Volume 88.6 fL (80-100); Monocytes Absolute Auto 600 /uL (0-900); Monocytes Percent Auto 6.9 % (3-14); Neutrophils Absolute Auto 5500 /uL (1500-7000); Neutrophils Percent Auto 66.7 % (50-75); Platelet Count 173 X10^3/uL (150-400); Red Blood Cell Count 5.05 X10^6/uL (4.0-5.2); Red Cell Distribution Width 13.8 % (11.6-14.8); White Blood Cell Count 8.3 X10^3/uL (4.5-11.0)
[2024-10-01 20:03] LABS: Alanine Aminotransferase 18 IU/L (<35); Albumin 4.5 g/dL (3.5-5.0); Albumin Globulin Ratio 1.5 (1.0-2.8); Alkaline Phosphatase 84 U/L (38-126); Aspartate Aminotransferase 33 IU/L (14-36); BUN Creatinine Ratio 20.3 (6-22); Bilirubin Total 0.9 mg/dL (0.2-1.3); Blood Urea Nitrogen 14 mg/dL (7-17); Calcium 9.3 mg/dL (8.4-10.2); Carbon Dioxide 26 mmol/L (22-32); Chloride 101 mmol/L (98-107); Estimated Glomerular Filt Rate > 60 mL/min (>60); Globulin 3.1 g/dL (1.7-4.1); Glucose 99 mg/dL (70-99); HEMOLYSIS 20 (0-50); Potassium 4.1 mmol/L (3.4-5.1); Sodium 135 mmol/L (137-145); Total Protein 7.6 g/dL (6.3-8.2)
[2024-10-01 20:14] VITALS: BP 212/105; PULSE 71; RESP 18; O2SAT 96
== END 2024-10-01 20:34 | disposition home or self-care (01) ==
PROVIDERS: Emergency Provider Physician Assistant; PCP Nurse Practitioner Family
DX: S61.412A Laceration without foreign body of left hand, initial encounter (principal); R03.0 Elevated blood-pressure reading, without diagnosis of hypertension; W26.9XXA Contact with unspecified sharp object(s), initial encounter; Z23 Encounter for immunization
CPT/HCPCS: 36415; 80053; 85025; 90471; 99283; 99284; 90715